=== PATIENT | male | born 1980 | race Caucasian/White ===

== ENCOUNTER 2025-01-23 17:46 | Inpatient (IN) | payer OTHER ==
[~2025-01-23] VITALS: Ht 180.3 cm; Wt 114.9 kg
[2025-01-23 18:41] LABS: BASOPHILS ABSOLUTE AUTO 0.03 K/mm3 (0.00-0.23); BASOPHILS PERCENT AUTO 0 % (0-2); EOSINOPHILS ABSOLUTE AUTO 0.01 K/mm3 (0.00-0.68); EOSINOPHILS PERCENT AUTO 0 % (0-6); Hematocrit 42.8 % (37.0-53.0); Hemoglobin 14.5 g/dL (13.5-17.5); IMMATURE GRAN ABSOLUTE AUTO 0.06 K/mm3 (0.00-0.10); IMMATURE GRAN PERCENT AUTO 1 % (0-1); LYMPHOCYTES ABSOLUTE AUTO 0.99 K/mm3 (0.84-5.20); LYMPHOCYTES PERCENT AUTO 8 % (21-46); MONOCYTES ABSOLUTE AUTO 1.07 K/mm3 (0.16-1.47); MONOCYTES PERCENT AUTO 8 % (4-13); Mean Corpuscular HGB Conc 33.9 g/dL (31.5-36.5); Mean Corpuscular Volume 86 fL (80-100); NEUTROPHILS ABSOLUTE AUTO 10.78 K/mm3 (1.96-9.15); NEUTROPHILS PERCENT AUTO 83 % (41-73); NRBC ABSOLUTE 0.00 K/mm3 (0.00-0.02); NRBC Auto 0.0 /100 WBC (0.0-0.2); Platelet Count 361 K/mm3 (150-400); RDW Coefficient Variation 12.5 % (11.7-14.2); RDW Standard Deviation 39.4 fL (35.1-46.3)
[2025-01-23 19:02] LABS: Alanine Aminotransfer (ALT/SGP 31.0 U/L (12-78); Albumin, Blood 2.9 g/dL (3.4-5.0); Albumin/Globulin Ratio 0.6 (0.8-1.8); Anion Gap 14.0 mmol/L (3-11); Aspartate Aminotrans (AST/SGOT 20.0 U/L (12-37); Bilirubin, Total 0.8 mg/dL (0.1-1.0); Blood Urea Nitrogen 12.0 mg/dL (8-24); CO2, Blood 20.0 mmol/L (21-32); Calcium, Blood 9.0 mg/dL (8.5-10.1); Chloride, Blood 99.0 mmol/L (98-108); Creatinine, Blood 0.82 mg/dL (0.60-1.20); Globulin, Blood 4.7 g/dL (2.2-4.0); Glucose, Blood 312.0 mg/dL (70-99); Potassium, Blood 4.0 mmol/L (3.5-5.5); Sodium, Blood 129.0 mmol/L (136-145); Total Protein, Blood 7.6 g/dL (6.4-8.2)
[2025-01-23] MEDS ORDERED: Ondansetron HCl 2 MG / ML 2ML Vial IV ONE (20:05)
[2025-01-23] MEDS ORDERED: Vancomycin HCL 2,000 MG in NS 520 ML IV ONE (21:45)
[2025-01-23] MEDS ORDERED: NS 1,000 ML IV SCH (21:45)
[2025-01-23] MEDS ORDERED: Vancomycin (Pharmacy Consult) IV SCH (23:15)
[2025-01-23] MEDS ORDERED: FentaNYL Citrate 50 MCG/ML 2 ML Injection IV PRN (23:20)
[2025-01-23] MEDS ORDERED: FLU VACC TS2025-26(6MOS UP)/PF 45 MCG/0.5 ML SYRINGE IM SCH (23:20)
[2025-01-23] MEDS ORDERED: NS 1,000 ML IV ONE (23:20)
[2025-01-23] MEDS ORDERED: Ondansetron HCl 2 MG / ML 2ML Vial IV PRN (23:20)
[2025-01-24] VITALS (14 sets, daily range): BP systolic 119–168; BP diastolic 67–85
[2025-01-24] MEDS ORDERED: Cefepime HCl 1,000 MG in NS 100 ML IV SCH
[2025-01-24] MEDS ORDERED: Insulin Glargine-Yfgn 100 Unit/mL 3 ML SYR SC SCH
--- NOTE | 2025-01-24 02:13 | NUR ---
ARRIVAL PT NEW ADMIT FROM ER. ARRIVED VIA GOURNEY, ABLE TO AMBULATE OOB INDEPENDENTLY. VSS. PT ENDORSES DULL PAIN IN L GREAT TOE, DENIES NEED FOR PAIN MEDICATION. PT DOES NOT WANT TO GET DRESSED INTO A HOSPITAL GOWN THIS EVENING, AGREEABLE TO CHANGE IN THE AM. PT REMAINS NPO.
--- NOTE | 2025-01-24 04:03 | NUR ---
SHIFT SUMMARY PT ER ADMIT THIS SHIFT FOR COMMINUTED FRACTURE OF LEFT GREAT TOE. PT REPORTS HE HAD A SMALL WOUND ON THAT TOE, THAT GOT WORSE AFTER HIKING A FEW DAYS AGO. LEFT GREAT TOE SWOLLEN WITH ERYTHEMA, AND SURROUNDING BLACK TISSUE. PT REPORTS THAT IT IS MOSTLY NUMB AND REPORTS MINIMAL PAIN 1/10. PT HYPERGLYCEMIC, AND HAS NOT BEEN FORMALLY DIAGNOISED WITH DM. ADMISSION COMPLETE. PT HAS ORDER FOR PODIATRY CONSULT. NPO FOR POSSIBLE PROCEDURE. VITALS STABLE, BED IN LOWEST POSITON, CALL LIGHT WITHIN REACH.
--- NOTE | 2025-01-24 04:21 | NUR ---
PRE-SURGICAL WASH PT DOES NOT WANT TO REMOVE STREET CLOTHES, HE REPORTS HE WILL DO SURGICAL WASH DURING DAYSHIFT.
[2025-01-24 05:05] LABS: BASOPHILS ABSOLUTE AUTO 0.04 K/mm3 (0.00-0.23); BASOPHILS PERCENT AUTO 0 % (0-2); EOSINOPHILS ABSOLUTE AUTO 0.02 K/mm3 (0.00-0.68); EOSINOPHILS PERCENT AUTO 0 % (0-6); Hematocrit 36.6 % (37.0-53.0); Hemoglobin 12.6 g/dL (13.5-17.5); IMMATURE GRAN ABSOLUTE AUTO 0.05 K/mm3 (0.00-0.10); IMMATURE GRAN PERCENT AUTO 0 % (0-1); LYMPHOCYTES ABSOLUTE AUTO 1.41 K/mm3 (0.84-5.20); LYMPHOCYTES PERCENT AUTO 11 % (21-46); MONOCYTES ABSOLUTE AUTO 1.36 K/mm3 (0.16-1.47); MONOCYTES PERCENT AUTO 11 % (4-13); Mean Corpuscular HGB Conc 34.4 g/dL (31.5-36.5); Mean Corpuscular Volume 86 fL (80-100); NEUTROPHILS ABSOLUTE AUTO 9.66 K/mm3 (1.96-9.15); NEUTROPHILS PERCENT AUTO 77 % (41-73); NRBC ABSOLUTE 0.00 K/mm3 (0.00-0.02); NRBC Auto 0.0 /100 WBC (0.0-0.2); Platelet Count 330 K/mm3 (150-400); RDW Coefficient Variation 12.6 % (11.7-14.2); RDW Standard Deviation 39.3 fL (35.1-46.3)
[2025-01-24 05:38] LABS: Alanine Aminotransfer (ALT/SGP 30.0 U/L (12-78); Albumin, Blood 2.6 g/dL (3.4-5.0); Albumin/Globulin Ratio 0.7 (0.8-1.8); Anion Gap 9.0 mmol/L (3-11); Aspartate Aminotrans (AST/SGOT 18.0 U/L (12-37); Bilirubin, Total 0.6 mg/dL (0.1-1.0); Blood Urea Nitrogen 12.0 mg/dL (8-24); CO2, Blood 24.0 mmol/L (21-32); Calcium, Blood 8.1 mg/dL (8.5-10.1); Chloride, Blood 101.0 mmol/L (98-108); Creatinine, Blood 0.79 mg/dL (0.60-1.20); Globulin, Blood 3.9 g/dL (2.2-4.0); Glucose, Blood 257.0 mg/dL (70-99); Potassium, Blood 3.9 mmol/L (3.5-5.5); Sodium, Blood 130.0 mmol/L (136-145); Total Protein, Blood 6.5 g/dL (6.4-8.2)
[2025-01-24] MEDS ORDERED: Insulin Human Lispro 100 Units/ML 3ML Syringe SC SCH ×3 (07:30→18:00)
[2025-01-24] MEDS ORDERED: Lidocaine HCL 1% 10 ML MDV ONE (13:51)
[2025-01-24] MEDS ORDERED: Bupivacaine 0.5% Inj 10 ML Vial ONE (13:51)
[2025-01-24] MEDS ORDERED: FentaNYL Citrate 50 MCG/ML 2 ML Injection ONE (13:57)
[2025-01-24] MEDS ORDERED: Midazolam HCl 1MG / ML 2ML Vial ONE (13:57)
[2025-01-24] MEDS ORDERED: Ondansetron HCl 2 MG / ML 2ML Vial ONE (13:57)
[2025-01-24] MEDS ORDERED: Dexamethasone Sod Phos 10 MG/ML 1ML VIAL ONE (13:57)
[2025-01-24] MEDS ORDERED: Citric Acid/Sodium Citrate 30 ML BTL PO ONE (14:30)
--- NOTE | 2025-01-24 14:35 | NUR ---
140 History, Chart, Medications and Allergies reviewed before start of procedure.PRE OP TEACHING DONE
[2025-01-24] MEDS ORDERED: Ketorolac Tromethamine 30mg Vial ONE (15:09)
[2025-01-24] MEDS ORDERED: Metoclopramide HCl 5MG / ML 2ML Vial ONE (15:09)
[2025-01-24] MEDS ORDERED: Phenylephrine HCl 100 MCG/ML-NS 10MLSYR (1MG/10ML) ONE (15:09)
[2025-01-24] MEDS ORDERED: FentaNYL Citrate 50 MCG/ML 2 ML Injection IV PRN ×2 (15:10)
[2025-01-24] MEDS ORDERED: ePHEDrine Sulfate 50 MG/ML 1ML Injection IV PRN (15:10)
[2025-01-24] MEDS ORDERED: HydrALAZINE HCl 20 MG / ML 1ML Vial IV PRN (15:10)
[2025-01-24] MEDS ORDERED: HYDROmorphone HCl/Pf 1MG SYR IV PRN ×2 (15:15)
[2025-01-24] MEDS ORDERED: Ondansetron HCl 2 MG / ML 2ML Vial IV PRN (15:15)
[2025-01-24] MEDS ORDERED: Albuterol 2.5 MG/3 ML VIAL INH PRN (15:15)
[2025-01-24] MEDS ORDERED: Enoxaparin 40 MG/0.4 ML SYR SC SCH (16:00)
--- NOTE | 2025-01-24 17:43 | NUR ---
SHIFT SUMMARY WENDY IS ORIENTED X4, ABLE TO MAKE NEEDS KNOWN. L GREAT TOE WITH FOUL SMELL, ESCHAR, REDNESS AND BOGGINESS TO PLANTAR TOE. DR. CHAN CONSULTED FOR PODIATRY AND PT ULTIMATELY TAKEN FOR L GREAT TOE AMPUTATION, RETURNED FROM OR AROUND 1600. VSS, ON RA. DENIES PAIN R DISCOMFORT. POST OP DRESSING IN PLACE. PLAN FOR POST OP SHOE - CALLED [facility] AND AWAITING DELIVERY OF THIS. EDUCATED ON DIABETIC MANAGEMENT AND INSULIN. CONTINUED SUPPORT AND EDUCATION NEEDED.
[2025-01-25 04:07] VITALS: BP 159/88
--- NOTE | 2025-01-25 06:07 | NUR ---
SHIFT SUMMARY A/OX4, CALLS APPROPRIATELY. DENIES PAIN/SOB. UP TO BATHROOM SBA WITH POST OP SHOE AND 50% WB TO L. FOOT. DRESSING C/D/I. NO ACUTE CHANGES AT THIS TIME.
[2025-01-25 07:34] VITALS: BP 149/80
[2025-01-25 08:09] LABS: BASOPHILS ABSOLUTE AUTO 0.02 K/mm3 (0.00-0.23); BASOPHILS PERCENT AUTO 0 % (0-2); EOSINOPHILS ABSOLUTE AUTO 0.00 K/mm3 (0.00-0.68); EOSINOPHILS PERCENT AUTO 0 % (0-6); Hematocrit 39.6 % (37.0-53.0); Hemoglobin 13.7 g/dL (13.5-17.5); IMMATURE GRAN ABSOLUTE AUTO 0.09 K/mm3 (0.00-0.10); IMMATURE GRAN PERCENT AUTO 1 % (0-1); LYMPHOCYTES ABSOLUTE AUTO 1.05 K/mm3 (0.84-5.20); LYMPHOCYTES PERCENT AUTO 7 % (21-46); MONOCYTES ABSOLUTE AUTO 0.72 K/mm3 (0.16-1.47); MONOCYTES PERCENT AUTO 5 % (4-13); Mean Corpuscular HGB Conc 34.6 g/dL (31.5-36.5); Mean Corpuscular Volume 86 fL (80-100); NEUTROPHILS ABSOLUTE AUTO 12.82 K/mm3 (1.96-9.15); NEUTROPHILS PERCENT AUTO 87 % (41-73); NRBC ABSOLUTE 0.00 K/mm3 (0.00-0.02); NRBC Auto 0.0 /100 WBC (0.0-0.2); Platelet Count 344 K/mm3 (150-400); RDW Coefficient Variation 12.5 % (11.7-14.2); RDW Standard Deviation 39.0 fL (35.1-46.3)
[2025-01-25 08:27] LABS: Vancomycin, Trough 12.6 ug/mL (5.0-10.0)
[2025-01-25 08:37] LABS: Alanine Aminotransfer (ALT/SGP 36.0 U/L (12-78); Albumin, Blood 2.3 g/dL (3.4-5.0); Albumin/Globulin Ratio 0.5 (0.8-1.8); Anion Gap 12.0 mmol/L (3-11); Aspartate Aminotrans (AST/SGOT 16.0 U/L (12-37); Bilirubin, Total 0.6 mg/dL (0.1-1.0); Blood Urea Nitrogen 18.0 mg/dL (8-24); CO2, Blood 23.0 mmol/L (21-32); Calcium, Blood 8.6 mg/dL (8.5-10.1); Chloride, Blood 102.0 mmol/L (98-108); Creatinine, Blood 0.69 mg/dL (0.60-1.20); Globulin, Blood 4.6 g/dL (2.2-4.0); Glucose, Blood 294.0 mg/dL (70-99); Potassium, Blood 4.7 mmol/L (3.5-5.5); Sodium, Blood 132.0 mmol/L (136-145); Total Protein, Blood 6.9 g/dL (6.4-8.2)
[2025-01-25] MEDS ORDERED: Lactobacil 2-S.Thermo-Bifido 1 1 Cap PO SCH (09:00)
[2025-01-25] MEDS ORDERED: Insulin Glargine 100 Unit/ML 3 ML SYR SC SCH (09:00)
[2025-01-25] MEDS ORDERED: OxyCODONE 5 mg/Acetamin 325 mg TABLET PO PRN (10:15)
[2025-01-25] MEDS ORDERED: Insulin Human Lispro 100 Units/ML 3ML Syringe SC SCH (11:30)
[2025-01-25] MEDS ORDERED: CefTRIAXone Sodium 2,000 MG in NS 100 ML IV SCH (12:00)
[2025-01-25 14:39] VITALS: BP 129/75
--- NOTE | 2025-01-25 17:28 | NUR ---
SHIFT SUMMARY PT PARTICIPATING IN CHEM BG CHECKS AND INSULIN ADMINISTRATION PER DR GARCIA'S REQUEST. PT PERFORMING WELL WITH THIS. FOOT DRESSING CHANGED BY MD TODAY. DAILY DRESSING CHANGES STARTING TOMORROW PER PODIATRY. WILL CONTINUE TO MONITOR.
[2025-01-25 19:55] VITALS: BP 126/73
[2025-01-26 05:34] VITALS: BP 119/68
[2025-01-26 06:07] LABS: BASOPHILS ABSOLUTE AUTO 0.04 K/mm3 (0.00-0.23); BASOPHILS PERCENT AUTO 0 % (0-2); EOSINOPHILS ABSOLUTE AUTO 0.07 K/mm3 (0.00-0.68); EOSINOPHILS PERCENT AUTO 1 % (0-6); Hematocrit 39.8 % (37.0-53.0); Hemoglobin 13.3 g/dL (13.5-17.5); IMMATURE GRAN ABSOLUTE AUTO 0.10 K/mm3 (0.00-0.10); IMMATURE GRAN PERCENT AUTO 1 % (0-1); LYMPHOCYTES ABSOLUTE AUTO 2.87 K/mm3 (0.84-5.20); LYMPHOCYTES PERCENT AUTO 22 % (21-46); MONOCYTES ABSOLUTE AUTO 0.73 K/mm3 (0.16-1.47); MONOCYTES PERCENT AUTO 6 % (4-13); Mean Corpuscular HGB Conc 33.4 g/dL (31.5-36.5); Mean Corpuscular Volume 87 fL (80-100); NEUTROPHILS ABSOLUTE AUTO 9.08 K/mm3 (1.96-9.15); NEUTROPHILS PERCENT AUTO 70 % (41-73); NRBC ABSOLUTE 0.00 K/mm3 (0.00-0.02); NRBC Auto 0.0 /100 WBC (0.0-0.2); Platelet Count 373 K/mm3 (150-400); RDW Coefficient Variation 12.6 % (11.7-14.2); RDW Standard Deviation 39.7 fL (35.1-46.3)
--- NOTE | 2025-01-26 06:35 | NUR ---
SHIFT SUMMARY POD 2-L GREAT TOE AMP. MANISH WRAP & DRESSING IN PLACE, C/D/I. NO DRAINAGE NOTED. PT ABLE TO WIGGLE REST OF TOES ON L FOOT. CAP REFILL <3 SEC. PT WEARS POST OP SHOE W/TRANSFERS, 50% WB. DENIES ANY PAIN T/O NIGHT. HAS CHRONIC NEUROPATHY & REPORTS VERY MINIMAL SENSATION. HS CBG @232, HAD PT CLEAN & POKE HIS OWN FINGER. PT UP MULTIPLE x TO VOID >THAN 1000ML EACH TIME. CALL LIGHT IN REACH.
[2025-01-26 06:39] LABS: Anion Gap 8.0 mmol/L (3-11); Blood Urea Nitrogen 17.0 mg/dL (8-24); CO2, Blood 26.0 mmol/L (21-32); Calcium, Blood 8.3 mg/dL (8.5-10.1); Chloride, Blood 105.0 mmol/L (98-108); Creatinine, Blood 0.74 mg/dL (0.60-1.20); Glucose, Blood 194.0 mg/dL (70-99); Potassium, Blood 4.1 mmol/L (3.5-5.5); Sodium, Blood 135.0 mmol/L (136-145)
[2025-01-26 07:13] VITALS: BP 137/83
[2025-01-26] MEDS ORDERED: MetFORMIN HCl 500 mg PO SCH (09:00)
[2025-01-26] MEDS ORDERED: Insulin Human Lispro 100 Units/ML 3ML Syringe SC SCH (11:30)
[2025-01-26 15:01] VITALS: BP 136/93
[2025-01-26] MEDS ORDERED: Insulin Human Lispro 100 Units/ML 3ML Syringe SC ONE (16:50)
--- NOTE | 2025-01-26 18:05 | NUR ---
SHIFT SUMMARY PT IS POD#2 FROM L GREAT TOE AMPUTATION. PT IS A SBA WHEN OOB. PT HAS DENIED PAIN T/O THE DAY. TOLERATING PO. USES CALL LIGHT APPROPRIATELY.
[2025-01-26 19:39] VITALS: BP 150/94
[2025-01-26 20:10] VITALS: BP 152/89
[2025-01-27 04:34] VITALS: BP 141/69
[2025-01-27 05:45] LABS: BASOPHILS ABSOLUTE AUTO 0.08 K/mm3 (0.00-0.23); BASOPHILS PERCENT AUTO 1 % (0-2); EOSINOPHILS ABSOLUTE AUTO 0.10 K/mm3 (0.00-0.68); EOSINOPHILS PERCENT AUTO 1 % (0-6); Hematocrit 40.4 % (37.0-53.0); Hemoglobin 13.4 g/dL (13.5-17.5); IMMATURE GRAN ABSOLUTE AUTO 0.14 K/mm3 (0.00-0.10); IMMATURE GRAN PERCENT AUTO 1 % (0-1); LYMPHOCYTES ABSOLUTE AUTO 2.43 K/mm3 (0.84-5.20); LYMPHOCYTES PERCENT AUTO 24 % (21-46); MONOCYTES ABSOLUTE AUTO 0.81 K/mm3 (0.16-1.47); MONOCYTES PERCENT AUTO 8 % (4-13); Mean Corpuscular HGB Conc 33.2 g/dL (31.5-36.5); Mean Corpuscular Volume 86 fL (80-100); NEUTROPHILS ABSOLUTE AUTO 6.53 K/mm3 (1.96-9.15); NEUTROPHILS PERCENT AUTO 65 % (41-73); NRBC ABSOLUTE 0.00 K/mm3 (0.00-0.02); NRBC Auto 0.0 /100 WBC (0.0-0.2); Platelet Count 339 K/mm3 (150-400); RDW Coefficient Variation 12.6 % (11.7-14.2); RDW Standard Deviation 39.8 fL (35.1-46.3)
[2025-01-27 06:05] LABS: Anion Gap 8.0 mmol/L (3-11); Blood Urea Nitrogen 12.0 mg/dL (8-24); CO2, Blood 26.0 mmol/L (21-32); Calcium, Blood 8.8 mg/dL (8.5-10.1); Chloride, Blood 105.0 mmol/L (98-108); Creatinine, Blood 0.92 mg/dL (0.60-1.20); Glucose, Blood 128.0 mg/dL (70-99); Potassium, Blood 4.3 mmol/L (3.5-5.5); Sodium, Blood 135.0 mmol/L (136-145)
--- NOTE | 2025-01-27 06:42 | NUR ---
SHIFT SUMMARY NOC. PT POD 3 FOR LEFT GREAT TOE AMPUTATION. DRESSING TO LEFT FOOT IS C/D/I. PT DENIES PAIN THIS SHIFT. PT A/O X4, MAKES NEEDS KNOWN. PT MAINTAINS WBS WITH AMBULATION TO BATHROOM. PT VOIDING URINE. CALL LIGHT IN REACH.
[2025-01-27 07:18] VITALS: BP 152/88
[2025-01-27] MEDS ORDERED: CEFTRIAXONE2 G1 IV (14:13)
[2025-01-27] MEDS ORDERED: INSULANPEN SC (14:14)
[2025-01-27] MEDS ORDERED: METFORMIN ER G500 MG PO (14:15)
[2025-01-27] MEDS ORDERED: VISBIOME 112.51 EACH PO (14:16)
[2025-01-27] MEDS ORDERED: DEXT40GEL PO (14:16)
[2025-01-27] MEDS ORDERED: CEFP200 PO (14:17)
[2025-01-27] MEDS ORDERED: HUMALOG KW100 UNIT/1 SC (14:20)
[2025-01-27 15:33] VITALS: BP 157/100
[2025-01-27 15:34] VITALS: BP 152/97
--- NOTE | 2025-01-27 15:53 | NUR ---
DISCHARGE ALL EDUCATION AND INSTRUCTIONS READ AND SIGNED. PATIENT HAS HAD DIABETIC DIET INFORMATION GIVEN, ALL PRESCRIIPTIONS SENT TO [facility] IN [place]. IV IS TAKEN OUT INTACT. [facility]URIE APPOINTMENTS FOR INFUSION SET UP. FOLLOW UP REFFERALS SENT. PATIENT REPORTS UNDERSTANDING OF MEDICATION ORDERS, DERESSING ORDERS. PATIENT IS WHEELED OUT TO AWAITING CAR.
== END 2025-01-27 15:59 | disposition home or self-care (01) | DRG 854 ==
LOC: ER 17:46 → SURS 17:47 → ERHOLD 17:47 → SURS 01-24 01:34
PROVIDERS: Podiatrist; Student in an Organized Health Care Education/Training Program; ADMIT Internal Medicine
PROC: 3E03329 Introduction of Other Anti-infective into Peripheral Vein, Percutaneous Approach (ICD-10-PCS; 2025-01-23)
PROC: 0Y6Q0Z0 Detachment at Left 1st Toe, Complete, Open Approach (ICD-10-PCS; principal; 2025-01-24 14:00)
DX: A40.1 Sepsis due to streptococcus, group B (principal); E11.52 Type 2 diabetes mellitus with diabetic peripheral angiopathy with gangrene; M86.172 Other acute osteomyelitis, left ankle and foot; M84.478A Pathological fracture, left toe(s), initial encounter for fracture; E11.42 Type 2 diabetes mellitus with diabetic polyneuropathy; E11.65 Type 2 diabetes mellitus with hyperglycemia; E11.69 Type 2 diabetes mellitus with other specified complication; L97.524 Non-pressure chronic ulcer of other part of left foot with necrosis of bone; E11.621 Type 2 diabetes mellitus with foot ulcer; R22.42 Localized swelling, mass and lump, left lower limb; Z88.0 Allergy status to penicillin
CPT/HCPCS: 36415; 73630; 80048; 80053; 80202; 82947; 83036; 83605; 83880; 85025; 86140; 87040; 87071; 87075; 87077; 87147; 87186; 87205; 88305; 88311; 93005; 93010; 93971; 94760; 96361; 96365; 96367; 96375; 96376; 99284-25; A9270; G0378; J0692; J0696; J1100; J1650; J1815; J1885; J2003; J2185; J2250; J2371; J2405; J2704; J2765; J3010; J3373; J7030; J7040; J7050; J7120

== ENCOUNTER 2025-01-28 07:06 | Day surgery (SDC) | payer OTHER ==
[~2025-01-28 07:06] MED LIST: CEFP200 PO; CEFTRIAXONE2 G1 IV; DEXT40GEL PO; HUMALOG KW100 UNIT/1 SC; INSULANPEN SC; METFORMIN ER G500 MG PO; VISBIOME 112.51 EACH PO
[2025-01-28] MEDS ORDERED: CefTRIAXone Sodium 2,000 MG in NS 100 ML IV SCH (07:15)
[2025-01-28 13:30] VITALS: BP 127/71
== END 2025-01-28 14:08 | disposition home or self-care (01) ==
LOC: ATC 07:06
DX: R78.81 Bacteremia (principal); E11.9 Type 2 diabetes mellitus without complications; Z88.0 Allergy status to penicillin; Z89.412 Acquired absence of left great toe
CPT/HCPCS: J0696

== ENCOUNTER 2025-01-29 01:31 | Day surgery (SDC) | payer OTHER ==
[~2025-01-29 01:31] MED LIST changes: +CefTRIAXone Sodium 2,000 MG in NS 100 ML IV SCH
[2025-01-29 14:12] VITALS: BP 116/82
== END 2025-01-29 14:41 | disposition home or self-care (01) ==
LOC: ATC 01:31
DX: R78.81 Bacteremia (principal); B95.1 Streptococcus, group B, as the cause of diseases classified elsewhere; M79.89 Other specified soft tissue disorders; Z89.412 Acquired absence of left great toe
CPT/HCPCS: 96365; J0696

== ENCOUNTER 2025-01-30 00:49 | Day surgery (SDC) | payer OTHER ==
[2025-01-29 14:05] VITALS: BP 112/68
[~2025-01-30 00:49] MED LIST changes: -CefTRIAXone Sodium 2,000 MG in NS 100 ML IV SCH
[2025-01-30] MEDS ORDERED: CefTRIAXone Sodium 2,000 MG in NS 100 ML IV SCH (06:00)
[2025-01-30 14:02] VITALS: BP 135/78
== END 2025-01-30 14:27 | disposition home or self-care (01) ==
LOC: ATC 00:49
DX: R78.81 Bacteremia (principal); B95.1 Streptococcus, group B, as the cause of diseases classified elsewhere; Z89.412 Acquired absence of left great toe; Z88.0 Allergy status to penicillin
CPT/HCPCS: 96365; J0696